=== PATIENT | female | born 1980 | race American Indian/Alaskan Native ===

== ENCOUNTER 2018-08-18 07:22 | Day surgery (SDC) | payer OTHER ==
[2018-08-18] MEDS ORDERED: NACL 0.9% 500 ML 500 ML IV SCH (08:00)
[2018-08-18] MEDS ORDERED: HEPARIN 10,000 UNITS/10 ML ONE (08:30)
[2018-08-18] MEDS ORDERED: HEPARIN/NS 5000 UNIT/500ML(CATH LAB) 1,000 ML IR ONE (08:30)
[2018-08-18] MEDS ORDERED: CALAN ONE (08:30)
[2018-08-18] MEDS ORDERED: NITROGLYCERIN SYRINGE 3 ML ONE (08:30)
[2018-08-18] MEDS ORDERED: ECOTRIN PO ONE (08:30)
[2018-08-18] MEDS: VERSED ONE ×2 (09:17→09:31)
[2018-08-18] MEDS: SUBLIMAZE ONE ×2 (09:17→09:30)
[2018-08-18] MEDS: XYLOCAINE 2% INFILTRATI ONE ×2 (09:23→09:26)
[2018-08-18] MEDS ORDERED: NITRO-BID 2% TP ONE (09:36)
[2018-08-18] MEDS ORDERED: SUBLIMAZE ONE (09:37)
--- NOTE | 2018-08-18 10:12 | Cardiac Catherization Report ---
CARDIAC CATHETERIZATION REPORT INDICATION FOR PROCEDURE: A 38-year-old female with history of hyperlipidemia, hypertension, hypothyroidism and prediabetes, morbid obesity is having exertional dyspnea and exertional chest pain and she has chest pain during her stress test. Hence scheduled for cardiac catheterization for definitive diagnosis and treatment. The patient is aware of the procedure, potential complications and alternatives of therapy available. DESCRIPTION OF PROCEDURE: The patient was brought to the catheterization laboratory in a fasting condition. The right wrist area and forearm thoroughly cleansed with Betadine solution. Sterile drapes were applied. Local anesthesia was achieved using 2% Xylocaine. Right radial artery puncture was made using 21-gauge arterial puncture needle. Subsequently, 5-[place] sheath was introduced. The patient received 3000 units of intravenous heparin and 5 mg of intra-arterial verapamil. A 5-[place] multipurpose catheter was advanced without difficulty. Subsequently, pneumatic lesion of the angiograms of the right coronary artery were obtained and subsequently any manipulation of the catheter was very painful and the patient received more IV sedation and topical nitrates in the right forearm area. Subsequently, catheter was changed to 5-[place] TIG catheter. Angiograms of the left coronary artery were obtained. This was exchanged with multipurpose catheter and manual inflation to enter the catheter into the LV was unsuccessful because of severe pain, probably less severe radial spasm. Considering his severe radial spasm, left ventricle was not entered. Left ventriculogram was not performed. Catheter was removed and good hemostasis was achieved with a radial band. The patient tolerated the procedure well except could not enter the left ventricle because of his severe radial spasm. The patient's sedation started at 9:17 a.m. and the patient was sedated with a few doses of IV Versed and fentanyl and monitored continuously with pulse oximetry, EKG monitoring and hemodynamic monitoring and moderate sedation ended 9:41 a.m. The patient tolerated the sedation well. At the end of the procedure, the patient converse normally and moving all the extremities and reaching normally. Following findings were noted. Aortic pressure 132/94. No gradient across the aortic valve, did not enter the left ventricle. Right coronary artery nondominant artery is arising normally from right coronary cusp, angiographically smooth and normal. Left coronary artery arises normally from left coronary cusp. Left main, LAD, which curves around the apex and circumflex artery and its branch are angiographically smooth and normal. FINAL IMPRESSION: 1. Normal coronary anatomy angiographically. 2. Did not enter the left ventricle because of severe radial spasm. 3. Procedure was uncomplicated. 4. The patient tolerated the sedation well. Good hemostasis was achieved with radial band. Findings were explained to the patient. JOB# [id number] MALENA/ANASTACIO TAPIA
[2018-08-18 13:03] VITALS: BP 140/88
--- NOTE | 2018-08-18 15:47 | Short Stay Summary ---
Short Stay Documentation Date of service: 08/18/18 - History H&P: obtained from office - Allergies and Medications Current Medications: Allergies fat emulsions [From Microlipid] Adverse Reaction (Verified 08/18/18 07:42) Rash latex Adverse Reaction (Verified 08/18/18 07:42) Rash long chain triglycerides [From Microlipid] Adverse Reaction (Verified 08/18/18 07:42) Rash metoclopramide [From Reglan] Adverse Reaction (Verified 08/18/18 07:42) Anaphylaxis nitrofurantoin [From Macrobid] Adverse Reaction (Verified 08/18/18 07:46) Rash Home Medications Medication Instructions Recorded Confirmed Last Taken Type FLUoxetine HCL [PROzac] 40 mg PO DAILY 08/18/18 08/18/18 08/17/18 History 40mg Levothyroxine [Synthroid] 50 mcg PO DAILY 08/18/18 08/18/18 08/17/18 History 50mcg Lisinopril [Zestril TAB] 40 mg PO DAILY 08/18/18 08/18/18 08/17/18 History 40mg One Daily Womens 50 Plus Tab 1 tab PO DAILY 08/18/18 08/18/18 08/17/18 History 1 tab hydroCHLOROthiazide [HCTZ] 25 mg PO DAILY 08/18/18 08/18/18 08/17/18 History 25mg - Brief post op/procedure progress note Date of procedure: 08/18/18 Pre-op diagnosis: cp Post-op diagnosis: same Procedure: LHC - see dictated cath report Anesthesia: local Estimated blood loss: none Condition: stable - Disposition Condition at discharge: Good Disposition: [id number] TO HOME OR SELFCARE - Discharge Diagnoses (1) HTN (hypertension) Status: Chronic (2) Hyperlipidemia Status: Chronic (3) Prediabetes Status: Chronic (4) Obesity Status: Chronic (5) Normal coronary arteries Status: Chronic Short Stay Discharge Plan Activity: advance as tolerated Diet: low fat, low cholesterol, low salt, diabetic Wound: open to air, keep clean and dry, per your surgeon's advice Follow up with: RUTH HALL MD [Other] - 7 Days Forms: CardCat PCI D/C Instructions, Work/School Excuse Out Patient, Work/School Release Form
== END 2018-08-18 14:00 | disposition home or self-care (01) ==
LOC: CATHLABREC 07:22
PROVIDERS: ATTEND Internal Medicine
DX: R07.9 Chest pain, unspecified (principal); E78.5 Hyperlipidemia, unspecified; I10 Essential (primary) hypertension; E03.9 Hypothyroidism, unspecified; E78.00 Pure hypercholesterolemia, unspecified; F32.9 Major depressive disorder, single episode, unspecified; F41.9 Anxiety disorder, unspecified; E66.01 Morbid (severe) obesity due to excess calories; Z91.040 Latex allergy status; Z79.899 Other long term (current) drug therapy; Z68.42 Body mass index [BMI] 45.0-49.9, adult; Z83.3 Family history of diabetes mellitus; Z98.51 Tubal ligation status; Z88.8 Allergy status to other drugs, medicaments and biological substances
CPT/HCPCS: 93005; 93010; 93454; 99156; 99157; C1887; C1894; J1644; J2250; J3010; J7040; Q9967